=== PATIENT | male | born 1950 | race Caucasian/White ===

== ENCOUNTER 2019-08-04 23:30 | Emergency (ER) | payer OTHER, SELFPAY ==
--- NOTE | 2019-08-04 23:38 | ED_ITS ---
HPI - Abdominal Pain General Chief Complaint: Abdominal Pain Stated Complaint: stomach pain when eating Time Seen by Provider: 08/04/19 23:37 Source: patient Mode of arrival: Ambulatory Limitations: no limitations History of Present Illness HPI narrative: 68-year-old male nonsmoker with history of skin cancer presents with a chief complaint of a week or so of generalized abdominal pain which seems to be worse with eating. He complains of abdominal bloating, decreased appetite and some swelling in his neck. He has had no fever but admits to some chills. He has had nausea but no vomiting. He states that he was seen by his primary care provider and had some outpatient testing done but does not yet know the results. MD complaint: abdominal pain Onset (ago): day(s) Pain Consistency: constant Location: diffuse Severity: moderate Quality: cramping and aching Radiation: none Exacerbating factors: eating and movement Associated symptoms: nausea Related Data Previous Rx's Medication Instructions Recorded hydrocodone-acetaminophen 1 tab PO Q4-6H PRN #10 tab 08/05/19 ondansetron 4 mg PO TID-QID PRN #10 tab 08/05/19 Allergies Allergy/AdvReac Type Severity Reaction Status Date / Time No Known Drug Allergies Allergy Verified 08/05/19 00:04 Review of Systems Constitutional Constitutional: Denies chills, Denies fatigue, Denies fever(s), Denies frequent falls, Denies lethargy and Denies weakness Eyes Eyes: Denies change in vision, Denies eye discharge, Denies irritation and Denies loss of vision ENT Ears, Nose, Mouth, and Throat: Denies change in voice, Denies dizziness, Denies neck pain, Denies sore throat and Denies throat swelling Cardiovascular Cardiovascular: Denies chest pain, Denies irregular heart rhythm, Denies lightheadedness, Denies palpitations, Denies dyspnea, Denies dyspnea on exertion and Denies orthopnea Respiratory Respiratory: Denies cough, Denies dyspnea, Denies dyspnea on exertion and Denies wheezing Gastrointestinal Gastrointestinal: Reports abdominal pain, Denies change in bowel habits, Denies diarrhea, Reports nausea and Denies vomiting Genitourinary Genitourinary: Denies hematuria, Denies flank pain, Denies urinary incontinence and Denies urinary urgency Musculoskeletal Musculoskeletal: Denies back pain, Denies muscle weakness, Denies neck pain, Denies numbness and Denies tingling Integumentary/Breasts Skin/Breast: Denies pruritus, Denies erythema, Denies rash and Denies wounds Neurologic Neurologic: Denies behavioral changes, Denies confusion, Denies dizziness, Denies frequent falls, Denies loss of vision, Denies numbness, Denies tingling and Denies weakness Psychiatric Psychiatric: Denies anxiety, Denies behavioral changes, Denies confusion, Denies depression, Denies homicidal ideation and Denies suicidal ideation Endocrine Endocrine: Denies fatigue, Denies flushing and Denies palpitations Hematologic/Lymphatic Hematologic/Lymphatic: Denies easy bruising Allergic/Immunologic Allergic/Immunologic: Denies urticaria, Denies throat swelling and Denies whe ezing Patient History Social History Smoking Status: Never smoker Exam Narrative Exam Narrative: GENERAL: [68-year-old] year old patient appears stated age. Well-nourished, well-developed patient, in mild distress. HEAD: Atraumatic. Normocephalic. EYES: Pupils equal round and reactive. Extraocular motions intact. No scleral icterus. No injection or drainage. ENT: Nose without bleeding, purulent drainage. Throat without erythema, tonsillar hypertrophy or exudate. Airway patent. NECK: Trachea midline. Swollen tender cervical lymphadenopathy bilaterally CARDIOVASCULAR: Regular rate and rhythm without murmurs, gallops, or rubs. RESPIRATORY: Clear to auscultation. Breath sounds equal bilaterally. No wheezes, rales, or rhonchi. GASTROINTESTINAL: Abdomen soft, mild generalized tenderness and mild distension EXTREMITIES: No edema or joint tenderness. BACK: Nontender without deformity or crepitance. No flank tenderness. NEURO: AOx3. SKIN: No rash or erythema of visible areas Initial Vital Signs Initial Vital Signs: Vital Signs Temperature 97.9 F 08/04/19 23:40 Pulse Rate 101 H 08/04/19 23:40 Respiratory Rate 19 08/04/19 23:40 Blood Pressure 130/62 08/04/19 23:40 Pulse Oximetry 101 H 08/04/19 23:40 Course Orders Ordered: ED Orders 08/05/19 00:08 CT abdomen pelvis w con Stat 08/05/19 00:15 Complete Blood Count AUTO DIFF Stat Comprehensive Metabolic Panel Stat Lipase Stat 08/05/19 02:02 Urine Microscopic Stat Discontinued Medications Hydrocodone Bitart/Acetaminophen (Vicodin 5/325 Prepack) 1 bottle MISC SEEINSTR ONE Stop: 08/05/19 02:06 Last Admin: 08/05/19 02:10 Dose: 1 bottle Documented by: ANA MARIA Sodium Chloride (Normal Saline 0.9%) 1,000 mls @ 1,000 mls/hr IV BOLUS ONE Stop: 08/05/19 01:06 Last Infusion: 08/05/19 01:47 Dose: 0 mls/hr Documented by: Admin: 08/05/19 00:28 Dose: 1,000 mls/hr Documented by: LUCY Ondansetron HCl (Zofran) 4 mg IV NOW ONE Stop: 08/05/19 00:08 Last Admin: 08/05/19 02:10 Dose: Not Given Documented by: ANA MARIA Ondansetron HCl (Zofran Odt Prepack) 1 bottle MISC SEEINSTR ONE Stop: 08/05/19 02:06 Last Admin: 08/05/19 02:10 Dose: 1 bottle Documented by: ANA MARIA Pantoprazole Sodium (Protonix) 40 mg IV NOW ONE Stop: 08/05/19 00:08 Last Admin: 08/05/19 00:28 Dose: 40 mg Documented by: LUCY Vital Signs Vital signs: Vital Signs - 8 hr 08/04/19 23:40 08/05/19 02:09 Temperature 97.9 F Pulse Rate 101 H 89 Respiratory Rate 19 14 Blood Pressure 130/62 Blood Pressure [Left Arm] 127/63 Pulse Oximetry 101 H 94 MDM - Abdominal Pain Lab Data Result diagrams: 08/05/19 00:15 08/05/19 00:15 Labs: Lab Results 08/05/19 08/05/19 08/05/19 Range/Units 00:15 00:15 02:02 WBC 9.0 (4.5-11.0) X10^3/uL RBC 3.77 L (4.5-5.9) X10^6/uL Hgb 11.9 L (13.5-17.5) g/dL Hct 34.0 L (41-53) % MCV 90.1 (80-100) fL MCH 31.6 (26-34) PG MCHC 35.0 (30-36) % RDW 12.8 (11.6-14.8) % Plt Count 92 L (150-400) X10^3/uL Neut % (Auto) Not Reportable Lymph % (Auto) Not Reportable [place] % (Auto) Not Reportable Eos % (Auto) Not Reportable Baso % (Auto) Not Reportable Lymph # (Auto) Not Reportable [place] # (Auto) Not Reportable Baso # (Auto) Not Reportable Total Counted 100 Seg Neutrophils % 69.0 (38-70) % Band Neutrophils % 2.0 L (3-7) % Lymphocytes % (Manual) 11.0 L (25-45) % Atypical Lymphs % 5.0 H ( - 0) % Monocytes % (Manual) 12.0 H (2-11) % Eosinophils % (Manual) 1.0 L (2-4) % Neutrophils # (Manual) 6390 H (3743-5681) /uL Differential Comment Platelet Estimate Adequate on smear RBC Morphology Normal morphology Sodium 132 L (137-145) mmol/L Potassium 4.3 (3.4-5.1) mmol/L Chloride 96 L (98-107) mmol/L Carbon Dioxide 25 (22-32) mmol/L BUN 23 H (9-20) mg/dL Creatinine 1.00 (0.66-1.25) mg/dL Estimated GFR > 60.0 (>60) mL/min BUN/Creatinine Ratio 23.0 H (6-22) Glucose 105 (80-110) mg/dL Calcium 8.9 (8.4-10.2) mg/dL Total Bilirubin 1.8 H (0.2-1.3) mg/dL AST 43 (17-59) IU/L ALT 41 (<50) IU/L Alkaline Phosphatase 147 H (38-126) U/L Total Protein 9.5 H (6.3-8.2) g/dL Albumin 3.7 (3.5-5.0) g/dL Globulin 5.8 H (1.7-4.1) g/dL Albumin/Globulin Ratio 0.6 L (1.0-2.8) Lipase 342 H (23-300) U/L Urine RBC 0-1/hpf (0-5/HPF) Urine WBC None seen (0-5/HPF) Ur Squamous Epith Cells 0-1 /hpf (0-5/HPF) Calcium Oxalate Crystal Occasional H Urine Bacteria Few (2-10) H (None) Ur Culture Indicated? Cult not indicated Point of care testing: Urine Dip Bedside Urine Glucose Negative Bedside Urine Bilirubin - Negative Bedside Urine Ketone ++ 40 Urine Specific [place] 1.005 Bedside Urine Occult Blood +/- Bedside Urine pH 5.5 Bedside Urine Protein + 30 Bedside Urine Urobilinogen +/- 1mg Bedside Urine Nitrite - Negative Bedside Urine Leukocytes - Negative Esterase Imaging Data CT scan - abdomen/pelvis: Radiologist's Impression: Marked enlargement of the spleen with focal area of linear wedge-shaped area of hypoattenuation along superior margin of spleen, this may represent splenic infarct. I called Radiology to inform them of patient's history of traumatic spleen injury with prior surgery and they state that is the most likely cause of this presentation. Furthermore in addition to splenomegaly with enlarged axillary, mediastinal, retroperitoneal, mesenteric, pelvic and inguinal lymph nodes consistent with lymphoma MDM Narrative Medical decision making narrative: Multiple etiologies for patient's symptoms considered including: [Gallbladder disease with thought less likely given lack of findings on imaging and labs. Bowel obstruction considered but thought less likely given imaging. Lymphoma considered high and differential given widespread lymphadenopathy.] Patient's symptoms improved or duration of stay with above-stated therapies. Findings and discharge diagnosis discussed with patient/family followed by verbalization of understanding Return precautions discussed with patient/family whom verbalize understanding. Discharge Plan Departure Patient Disposition: Home Clinical Impression: Abdominal pain Qualifiers: Abdominal location: epigastric Qualified Code(s): R10.13 - Epigastric pain Discharge Date/Time: 08/05/19 02:41 Instructions: DI for Non-Hodgkin's Lymphoma, DI for Abdominal Pain-Adult Activity Restrictions/Additional Instructions: *You have been diagnosed with [abdominal pain, CT scan suggests the possibility lymphoma. It is very important that you close follow-up as you will need a prompt outpatient evaluation for further diagnosis] *What to do: *Take medications as directed *Follow up with your primary care provider in 2-3 days, call for an appointment. Let them know you were seen in the Emergency Department and that we ask that you be seen in follow up *Return to ER if you should have any new, worsening or concerning symptoms 1. Drink plenty of fluids with frequent small sips. 2. For the next 24 hours a clear liquid diet is advised. After that please employ a brat diet which would include bananas, rice, apples, toast. 3. Please take medications as directed. 4. Please follow-up with your doctor in the next 1-2 days. Call the office for an appointment. 5. Please return to the emergency Department for any worsening or persistent symptoms, such as increasing pain or fever. If you have trouble getting follow up in the next few days please email me and I will do what I can to help [email or web address] Prescriptions: New hydrocodone-acetaminophen 5-325 mg tablet 1 tab PO Q4-6H PRN (Reason: pain) Qty: 10 RF: 0 ondansetron 4 mg tablet,disintegrating 4 mg PO TID-QID PRN (Reason: nausea and vomiting) Qty: 10 RF: 0 Referrals: [facility] [Outside] Zhen Lind MD [Physician] -
[2019-08-04 23:40] VITALS: BP 130/62; PULSE 101; RESP 19; TEMP 36.6; O2SAT 101; BMI 26.4
--- NOTE | 2019-08-05 00:08 | DI.CT.S_ITS ---
PROCEDURE: CT ABDOMEN PELVIS W CON INDICATIONS: severe abdominal pain TECHNIQUE: After the administration of intravenous contrast, 5 mm thick sections acquired from the diaphragm to the symphysis. 5 mm coronal and sagittal reformats were acquired. For radiation dose reduction, the following was used: automated exposure control, adjustment of mA and/or kV according to patient size. COMPARISON: None. FINDINGS: Image quality: Excellent. ABDOMEN: Lung bases: Small bilateral pleural effusions and bibasilar atelectasis. There is a 7 mm nodule in the right lower lobe. Left basilar scars. Heart size is normal. There is mediastinal and bilateral hilar lymphadenopathy, partially visualized. Partial visualization of left axillary lymphadenopathy. Solid organs: Liver is normal in size and enhancement. Gallbladder may contains small gallstones.. Biliary system is non dilated. Pancreas enhances normally. Spleen is enlarged measuring 17 x 16 cm. A triangular-shaped hypodensity in the superior aspect of spleen may represent splenic infarct. No adrenal nodules. Kidneys demonstrate normal size and enhancement, without hydronephrosis. Peritoneum and bowel: Bowel loops demonstrate normal wall thickness and caliber. No free air. There is a small amount of free fluid. Nodes and vessels: There is retroperitoneal and mesenteric adenopathy. The largest lymph node is noted in the periportal area measuring 2.9 x 3.7 cm. There are multiple enlarged para-aortic and aortocaval lymph nodes measuring up to 1.5 cm. There are enlarged iliac lymph nodes bilaterally. Enlarged external iliac lymph nodes measure up to 2.7 x 3.7 cm on the right and 2.7 x 4.0 cm on the left. Aorta and inferior vena cava are normal in size. Miscellaneous: No ventral hernias. PELVIS: Genitourinary: Bladder wall thickness is normal. Miscellaneous: No inguinal hernias. Bilateral inguinal adenopathy. Bones: No suspicious bony lesions. No vertebral body compression fractures. Severe degenerative changes in lumbar spine. There is moderate compression fractures of T12 and L1. Lucencies in T12 and L1 suggest pathological fracture. IMPRESSION: 1. Splenomegaly. There is a triangular shaped hypodensity in the superior aspect of spleen, suggesting splenic infarct. 2. Retroperitoneal, mesenteric, iliac and inguinal lymphadenopathy concerning for lymphoma or metastasis. 3. Partial visualization of mediastinal and hilar lymphadenopathy, as well as left axillary lymphadenopathy. Recommend chest CT for further evaluation. 4. Small bilateral effusions and bibasilar atelectasis. 5. A 7 mm nodule in the right lower lobe. Recommend followup chest CT in 3 months. 6. Compression fractures of T12 and L1. There are lucencies in T12 and L1 suggesting pathological fracture. MRI with and without contrast of the thoracic and lumbar spine may be obtained for further evaluation. 3. A small amount of free fluid. Dictated by: Nicolle Tionco M.D. on 08/05/2019 at 8:01 Approved by: Nicolle Tinoco M.D. on 08/05/2019 at 9:49
[2019-08-05] MEDS: SODIUM CHLORIDE 0.9% 1,000 ML 1000 ML IV (00:28)
[2019-08-05] MEDS: PANTOPRAZOLE 40 MG VIAL IV (00:28)
[2019-08-05 00:34] LABS: Alanine Aminotransferase 41 IU/L (<50); Albumin 3.7 g/dL (3.5-5.0); Albumin Globulin Ratio 0.6 (1.0-2.8); Alkaline Phosphatase 147 U/L (38-126); Aspartate Aminotransferase 43 IU/L (17-59); Bilirubin Total 1.8 mg/dL (0.2-1.3); Blood Urea Nitrogen 23 mg/dL (9-20); Calcium 8.9 mg/dL (8.4-10.2); Carbon Dioxide 25 mmol/L (22-32); Chloride 96 mmol/L (98-107); Estimated Glomerular Filt Rate > 60.0 mL/min (>60); Globulin 5.8 g/dL (1.7-4.1); Glucose 105 mg/dL (80-110); HEMOLYSIS < 15 (0-50); Lipase 342 U/L (23-300); Potassium 4.3 mmol/L (3.4-5.1); Sodium 132 mmol/L (137-145); Total Protein 9.5 g/dL (6.3-8.2)
[2019-08-05 00:35] LABS: Hemoglobin 11.9 g/dL (13.5-17.5); Mean Corpuscular Hemoglobin 31.6 PG (26-34); Mean Corpuscular Volume 90.1 fL (80-100); Red Blood Cell Count 3.77 X10^6/uL (4.5-5.9); Red Cell Distribution Width 12.8 % (11.6-14.8)
[2019-08-05 00:40] LABS: Add Manual Diff / Slide Review YES
[2019-08-05 00:41] LABS: Platelet Count 92 X10^3/uL (150-400)
[2019-08-05 00:57] LABS: Neutrophils Absolute Manual 6390 /uL (3000-5900); Total Cells Counted 100
[2019-08-05 00:59] LABS: Platelet Estimate Adequate on smear; RBC Morphology Normal Morphology
[2019-08-05 02:04] LABS: WBC Urine None Seen (0-5/HPF)
[2019-08-05 02:09] VITALS: BP 127/63; PULSE 89; RESP 14; O2SAT 94
[2019-08-05] MEDS: HYDROCODONE/ACET 5/325 PREPACK 1 BOTTLE MISC (02:10)
[2019-08-05] MEDS: ONDANSETRON 4 MG ODT PREPACK 1 BOTTLE MISC (02:10)
[2019-08-05 02:12] LABS: Bacteria Urine Few (2-10); Calcium Oxalate Crystals Urine Occasional; Culture Indicated Urine Cult Not Indicated; RBC Urine 0-1/HPF (0-5/HPF); Squamous Epithelial Cell Urine 0-1 /HPF (0-5/HPF)
== END 2019-08-05 02:41 | disposition home or self-care (01) ==
PROVIDERS: Emergency Provider Emergency Medicine
DX: R10.13 Epigastric pain (principal)
CPT/HCPCS: 36415; 74177; 80053; 81003; 81015; 83690; 85025; 96361; 96374; 99284; 99285; C9113; Q9967

== ENCOUNTER → 2019-08-09 08:45 | Oncology outpatient (ONC) | payer MEDICARE, SELFPAY ==
--- NOTE | 2019-08-09 09:23 | ONC.CONS ---
History of Present Illness - Data of Consult Patient: new to practice Consult date: 08/09/19 Requesting Physician: Jens Degroot Primary Care Provider: None - Consult Narrative Reason for consult: Diffuse lymphadenopaty Narrative: Mike Bolton is a 68 year old male. He has medical problems notable for hypertension, hypercholesterolemia as well as coronary artery disease status post stent placement in 2016. Patient has been in his usual health until recently in early 2019. Patient used to be able to swim 5 to 6 times a week. But in late June 2019, patient noted significant fatigue so that he had to stop swimming. In addition, patient developed abdominal pain sometime during first part of July 2019. At the same time patient has noticed decreasing appetite. He went to walk-in clinic at [place] and was evaluated by Dr. Hernadez. According to patient a CT scan was obtained. However the report is not available to review today. The patient also developed on-and-off fever, but he did not measure the temperature himself. Patient reports breaking out sweats easily especially at night. He does have a couple of episodes of soaking night sweats. He presented to emergency room on 08/05/2019 because of worsening diffuse and constant abdominal pain. It was moderate in severity. Feels like cramping and aching. It gets worse with eating and movement. It is associated with nausea. Sameday CT CAP with contrast showed splenomegaly with a triangular shaped hypodensity in the superior aspect of spleen suggesting splenic infarct, retroperitoneal, mesenteric, iliac and inguinal lymphadenopathy concerning for lymphoma or metastasis, partial visualization of mediastinum and hilar with lymphadenopathy as well as left axillary lymphadenopathy, small bilateral pleural effusions and bibasilar atelectasis, 7 mm nodule in the right lower lobe, and compression fractures of T12 and L1, lucencies in T12 and L1. MRI with and without contrast of the thoracic and lumbar spine may be obtained. Patient was provided pain medication including hydrocodone/acetaminophen and medication ondansetron for nausea and vomiting. Since June 2019 patient has lost significant weight. For the last 1 week, he lost about 12 lb. Patient has a bad appetite. He said he had lumps all over his body. He reports headache from time to time. He reports exertional shortness of breath. He denies any chest pain. He is having diarrhea after eating. Patient reports pain?: Yes - Pain Details Pain location: abdomen, flank. Pain Intensity: 7 Pain Frequency: Constant Pain Description: Pressure, Sharp, Stabbing, With Movement Pain referral/management: Managed by PCP Home Medications and Allergies Home Medications Medication Instructions Recorded Confirmed Type ondansetron 4 mg PO TID-QID PRN #10 tab 08/05/19 08/09/19 Rx atorvastatin 40 mg PO DAILY 08/09/19 08/09/19 History hydrocodone-acetaminophen 1 tab PO Q6H PRN #120 tab 08/09/19 08/09/19 Rx ramipril 2.5 mg DAILY 08/09/19 08/09/19 History Allergies Allergy/AdvReac Type Severity Reaction Status Date / Time No Known Drug Allergies Allergy Verified 08/09/19 14:21 Medical History - Medical, Surgical, Family History Medical History: Medical History (Last Updated 08/09/19 @ 09:46 by Zhen Lind MD) Coronary artery disease Onset Date: ~07/2015 Hepatitis C Hypercholesteremia Hypertension Rupture, spleen Onset Date: ~1992 Surgical History: Surgical History (Last Updated 08/09/19 @ 09:47 by Zhen Lind MD) History of tonsillectomy S/P shoulder surgery Stented coronary artery Onset Date: ~08/06/15 Family History: Family History (Last Updated 08/09/19 @ 09:48 by Zhen Lind MD) Mother Lung cancer - Social History Smoking Status: Never smoker Substance Use Type: marijuana (smoked, stopped in Jun 2019) Alcohol Intake: never Review of Systems - Patient Self-Reported Symptoms SR Constitution: Fever, Chills (loss), Weight loss/gain, Fatigue/Malaise, Night Sweats SR respiratory issues: Shortness of breath SR Cardiovascular issues: Shortness of breath with activity or lying flat SR Gastrointestinal issues: Nausea, Diarrhea, Abdominal pain SR Musculoskeletal issues: Muscle weakness, Back or neck pain SR Neuro issues: Headache SR Hematologic issues: Swollen lymph nodes All systems PM: reviewed and no additional remarkable complaints except as stated Exam Vital signs: 08/09/19 10:14 Last Vital Signs Temp 98 F 08/09/19 09:36 Pulse 82 08/09/19 09:36 Resp 18 08/09/19 09:36 BP 91/52 L 08/09/19 09:36 Pulse Ox 97 08/09/19 09:36 ECOG 1 Narrative: Gen: WDWN, NAD, ill-appearing, and cooperative. Accompanied by his sister and nephew HEENT: NCAT, EOMI, PERRLA, anicteric sclera. Neck: Supple, No palpable thyromegaly. Bilateral scattered lymph nodes behind the cleidomastoid muscle noted, largest measuring around 0.5 x 1 cm. Mild tenderness associated with lymph nodes were noted. Respiratory: CTAB, no wheezes audible. No JVD Cardiovascular: RRR, S1 and S2 normal, no M/G/R. Abdomen: Soft, diffuse non-localized tenderness noted. No rebounds. The spleen is palpable around 8 cm below the left costal margin with tenderness. Liver is palpable around 3 cm below the right costal margin. Extremities: No LE pitting edema. Lymphatic: Neck lymph nodes see above. There are groups of enlarged and tender lymph nodes in the axilla especially on the left side. Largest probably measuring 3 cm in diameter. There are grouped lymph nodes in the groins bilaterally. All lymph nodes were associated with some mild tenderness. Neurological: AOx3, CN II-XII grossly intact. No focal motor or sensory deficit. Psychiatric: Normal affect. Cooperative. Results - Labs Laboratory Last Values WBC 13.4 X10^3/uL (4.5-11.0) H 08/09/19 10:30 RBC 2.92 X10^6/uL (4.5-5.9) L 08/09/19 10:30 Hgb 10.4 g/dL (13.5-17.5) L 08/09/19 10:30 Hct 28.8 % (41-53) L 08/09/19 10:30 MCV 98.7 fL (80-100) D 08/09/19 10:30 MCH 35.5 PG (26-34) H 08/09/19 10:30 MCHC 35.9 % (30-36) 08/09/19 10:30 RDW 13.4 % (11.6-14.8) 08/09/19 10:30 Plt Count 66 X10^3/uL (150-400) L 08/09/19 10:30 Neut % (Auto) Not Reportable 08/09/19 10:30 Lymph % (Auto) Not Reportable 08/09/19 10:30 [place] % (Auto) Not Reportable 08/09/19 10:30 Eos % (Auto) Not Reportable 08/09/19 10:30 Baso % (Auto) Not Reportable 08/09/19 10:30 Lymph # (Auto) Not Reportable 08/09/19 10:30 [place] # (Auto) Not Reportable 08/09/19 10:30 Baso # (Auto) Not Reportable 08/09/19 10:30 Total Counted 100 08/09/19 10:30 Seg Neutrophils % 62.0 % (38-70) 08/09/19 10:30 Band Neutrophils % 13.0 % (3-7) H 08/09/19 10:30 Lymphocytes % (Manual) 10.0 % (25-45) L 08/09/19 10:30 Atypical Lymphs % 6.0 % (-0) H 08/09/19 10:30 Monocytes % (Manual) 4.0 % (2-11) 08/09/19 10:30 Eosinophils % (Manual) 2.0 % (2-4) 08/09/19 10:30 Myelocytes % 1.0 % (-0) H 08/09/19 10:30 Blast Cells % 2.0 % (-0) H 08/09/19 10:30 Neutrophils # (Manual) 89733 /uL (8294-7423) H 08/09/19 10:30 RBC Morphology See below 08/09/19 10:30 Rouleaux 2+ H 08/09/19 10:30 Sodium 129 mmol/L (137-145) L 08/09/19 10:30 Potassium 5.0 mmol/L (3.4-5.1) 08/09/19 10:30 Chloride 95 mmol/L (98-107) L 08/09/19 10:30 Carbon Dioxide 21 mmol/L (22-32) L 08/09/19 10:30 BUN 32 mg/dL (9-20) H 08/09/19 10:30 Creatinine 1.40 mg/dL (0.66-1.25) H 08/09/19 10:30 Estimated GFR 50.1 mL/min (>60) L 08/09/19 10:30 BUN/Creatinine Ratio 22.9 (6-22) H 08/09/19 10:30 Glucose 112 mg/dL (80-110) H 08/09/19 10:30 Calcium 8.9 mg/dL (8.4-10.2) 08/09/19 10:30 Magnesium 2.7 mg/dL (1.6-2.3) H 08/09/19 10:49 Total Bilirubin 2.3 mg/dL (0.2-1.3) H 08/09/19 10:30 AST 62 IU/L (17-59) H 08/09/19 10:30 ALT 45 IU/L (<50) 08/09/19 10:30 Alkaline Phosphatase 194 U/L (38-126) H 08/09/19 10:30 Lactate Dehydrogenase 1055 U/L (313-618) H 08/09/19 10:30 Total Creatine Kinase 22 U/L (55-170) L 08/09/19 11:57 Total Protein 9.7 g/dL (6.3-8.2) H* 08/09/19 10:30 Albumin 3.5 g/dL (3.5-5.0) 08/09/19 10:30 Globulin 6.2 g/dL (1.7-4.1) H 08/09/19 10:30 Albumin/Globulin Ratio 0.6 (1.0-2.8) L 08/09/19 10:30 Assessment and Plan (1) Generalized lymphadenopathy Overview: 68-year-old gentleman with previous history of coronary artery disease and potential exposure to Agent [place] was found to have diffuse lymphadenopathy with abdominal pain, fatigue, night sweats and weight loss. Areas of lymphadenopathy include bilateral neck, bilateral axilla, and bilateral groins on physical examination. Available CT scans of the abdomen pelvis confirmed lymphadenopathy in visualized mediastinum, axillary, retropritoneam, and groins on 08/05/2019. Assessment: I talked with the patient, patient's sister and patient's nephew that the clinical presentation is highly suspicious for possible aggressive lymphoma. However without diagnosis, it is not definitive. I talked with them that there are a variety of different types of lymphoma, and treatment is different. I was suspicious for possible diffuse large B-cell lymphoma, Hodgkin's lymphoma or high grade follicular lymphoma. I talked with them that the first important step is to obtain a tissue diagnosis, preferably excisional biopsy of the superficial lymph nodes. I will refer the patient to our surgeon to evaluate. Given that he will need chemotherapy, I also recommended that at the time of the lymph node excision, patient has the port placed. Patient and patient's family voiced understanding. Today patient feels weak, with low blood pressure. Patient has not been eating and drinking well for the last 1-2 weeks. I will give patient 2 L of normal saline. Plan: 1. CBC, CMP, LDH, B2M, SPEP, IFIX 2. CT neck and chest with contrast 3. PET/CT 4. BMA/Bx 5. Surgical referral excisional biopsy of lymph node and port placement 6. NS 2 liters iv x 1 7. Hydrocodone 5/325, 1# q6h prn, 120 8. RTC in one week (2) Abdominal pain Overview: Diffuse abdominal pain, 7/10 in severity, constant, sharp, stabbing like, worse with movement. Assessment: On CT scan of the abdomen it showed diffuse lymphadenopathy that could be the etiology for the abdominal pain. I talked with them that for now we will continue the pain medications. Usually the pain will get better only after treatment with chemotherapy if indicated. Assessment: Hydrocodone 5/325, 1# q6h, prn pain.
[2019-08-09 09:36] VITALS: BP 91/52; PULSE 82; RESP 18; TEMP 36.6; O2SAT 97
[2019-08-09] MEDS: SODIUM CHLORIDE 0.9% 1,000 ML 1000 ML IV ×2 (10:37→11:35)
[2019-08-09 10:54] LABS: Hematocrit 28.8 % (41-53); Hemoglobin 10.4 g/dL (13.5-17.5); Mean Corpuscular HGB Conc 35.9 % (30-36); Mean Corpuscular Hemoglobin 35.5 PG (26-34); Mean Corpuscular Volume 98.7 fL (80-100); Platelet Count 66 X10^3/uL (150-400); Red Blood Cell Count 2.92 X10^6/uL (4.5-5.9); Red Cell Distribution Width 13.4 % (11.6-14.8); White Blood Cell Count 13.4 X10^3/uL (4.5-11.0)
[2019-08-09 11:06] LABS: Alanine Aminotransferase 45 IU/L (<50); Albumin 3.5 g/dL (3.5-5.0); Albumin Globulin Ratio 0.6 (1.0-2.8); Alkaline Phosphatase 194 U/L (38-126); Aspartate Aminotransferase 62 IU/L (17-59); BUN Creatinine Ratio 22.9 (6-22); Bilirubin Total 2.3 mg/dL (0.2-1.3); Blood Urea Nitrogen 32 mg/dL (9-20); Calcium 8.9 mg/dL (8.4-10.2); Carbon Dioxide 21 mmol/L (22-32); Chloride 95 mmol/L (98-107); Estimated Glomerular Filt Rate 50.1 mL/min (>60); Globulin 6.2 g/dL (1.7-4.1); Glucose 112 mg/dL (80-110); HEMOLYSIS < 15 (0-50); Lactate Dehydrogenase 1055 U/L (313-618); Sodium 129 mmol/L (137-145)
[2019-08-09 11:11] LABS: Add Manual Diff / Slide Review YES
[2019-08-09 11:20] LABS: Total Protein 9.7 g/dL (6.3-8.2)
[2019-08-09 11:32] LABS: Magnesium 2.7 mg/dL (1.6-2.3)
[2019-08-09 11:43] VITALS: BP 105/57; PULSE 81; RESP 15; O2SAT 97
[2019-08-09] MEDS: LOPERAMIDE 2 MG CAPSULE 4 MG PO (11:55)
[2019-08-09 12:01] LABS: Neutrophils Absolute Manual 10050 /uL (3000-5900); Total Cells Counted 100
[2019-08-09 12:05] LABS: Rouleaux 2+
[2019-08-09 12:12] LABS: Creatine Kinase 22 U/L (55-170)
--- NOTE | 2019-08-09 12:48 | ONC.SCHED ---
Per Renetta, patient is transferring to [facility] and no scheduling is required by us at this time.
[2019-08-09 12:56] VITALS: BP 103/58; PULSE 80
--- NOTE | 2019-08-09 14:01 | ONC.MSW ---
Description: New Pt F/F Visit Activity: Met with pt both before and after his initial consult visit appt. today. Pt was able to get an urgent appt. today based on the acuity of his new probable lymphoma findings during his ER visit last week. He and this COMPUTER AIDE/Navigator discussed that we don't take [employer] as a seconday, however we could at least get him established with Dr. Lind and begin staging, since his primary insurance is Medicare. COMPUTER AIDE had explained to pt that we could use the [facility] Medical Relief Fund to help cover the cost of the out of pocket. Met with again after his provider visit, discussed all of the things that Dr. Lind wanted scheduled, decided to transfer his care to [facility], where they can take his [facility] [employer], due to the fact that he also doesn't have Part D insurance. Discussed family's questions about advanced directives. Provided both the Healthcare DPOA and General DPOA forms for pt, explained to his sister how to complete them. Faxed pt's clinicals to [facility], spoke with Lizzette about the transfer. Called [facility], was able to get pt an appt for later this afternoon to meet with a surgeon, and to get him scheduled for Friday for the lymph biopsy and port placement. He is scheduled to see Dr. Lind at [facility] next Friday for next steps.
[2019-08-11 14:46] LABS: Beta-2-Microglobulin 14.44 mg/L (< 2.52)
[2019-08-13 15:10] LABS: Albumin 2.7 g/dL (3.8-4.8); Alpha 1 Globulin 0.4 g/dL (0.2-0.3); Alpha 2 Globulin 0.7 g/dL (0.5-0.9); Beta 1 Globulin 0.3 g/dL (0.4-0.6); Gamma Globulin 4.4 g/dL (0.8-1.7); Protein, Total 8.9 g/dL (6.1-8.1)
== END ==
PROVIDERS: Referring Provider Internal Medicine Hematology & Oncology; Visit Provider Internal Medicine Hematology & Oncology
DX: R59.1 Generalized enlarged lymph nodes (principal); R53.83 Other fatigue; R10.9 Unspecified abdominal pain; R63.4 Abnormal weight loss; R61 Generalized hyperhidrosis; I10 Essential (primary) hypertension; I25.10 Atherosclerotic heart disease of native coronary artery without angina pectoris; Z95.5 Presence of coronary angioplasty implant and graft
CPT/HCPCS: 36415; 80053; 82232; 82550; 82784; 83615; 83735; 84155; 84165; 85025; 86334; 96360; 99205; 99214; 99215

== ENCOUNTER 2019-08-11 13:03 | Day surgery (SDC) | payer MEDICARE, SELFPAY ==
[2019-08-10 08:11] VITALS: BMI 26.5
[2019-08-11] VITALS (10 sets, daily range): BP systolic 92–106; BP diastolic 54–72; PULSE 80–87; RESP 10–18; TEMP 36.5–37.2; O2SAT 92–98; BMI 26.5
--- NOTE | 2019-08-11 | DI.RAD.S_ITS ---
PROCEDURE: XR CHEST 1V INDICATIONS: s/p right chest wall portacath placement TECHNIQUE: One view of the chest was acquired. COMPARISON: [facility], CT, CT ABDOMEN PELVIS W CON, 08/05/2019, 0:14. FINDINGS: Surgical changes and devices: Right chest Port-A-Cath, the tip of which projects to the SVC right atrial junction.. Lungs and pleura: Question left apical lung mass versus mediastinal mass. No pleural effusions or pneumothorax. Mediastinum: Question superior mediastinal mass versus left apical lung mass. Heart size is normal. Bones and chest wall: No suspicious bony lesions. Overlying soft tissues appear unremarkable. IMPRESSION: Port-A-Cath in satisfactory position. Question left apical lung mass versus superior mediastinal mass. Dictated by: Rod Pyle M.D. on 08/11/2019 at 20:28 Approved by: Rod Pyle M.D. on 08/11/2019 at 20:30
--- NOTE | 2019-08-11 | PATH_ITS ---
[facility] Accession Number: [id number] . 01 Material submitted: . PART A: lymph node - LEFT AXILLARY NODE PART B: lymph node - LEFT AXILLARY NODE . 01 Clinical history: . A: B-PLUS FIX . 01 Diagnosis: Lymph node, left axillary, excision: --- Atypical T-lymphoid proliferation --- see comment BMQ 08/18/2019 1256 Local . 01 Comment: This case is being sent to Dr. Merced Rivera at the the [place] [facility] for expert consultation. . This case (findings, expected turn around time, need for outside consultation) has been discussed with Dr. Lind on multiple occasions on 08/16 and 08/18/2019. . 01 Electronically signed: . Isabel Hollis MD, Pathologist NPI- [id number] . 01 Gross description: . (A) Received in formalin, labeled L axillary node, is a piece of multani-yellow rubbery adipose tissue (4.5 x 2.5 x 1.3 cm). No obvious lymph node is identified. Serially sectioned and entirely submitted in cassettes A1-A8, one slice in each cassette. (B) Received in B Plus Fix, labeled B Plus Fix L axillary node, is an apparent lymph node in multiple pieces (1.9 x 1.3 x 0.8 cm in aggregate). Serially sectioned and entirely submitted in cassette B1. . Also submitted are two dry slides, two wet slides received apparently in alcohol, and, per the requisition, two vials of RPMI containing tissue. ([id number]) /MRV 08/13/2019 0956 Local . 01 Microscopic: . H/E sections demonstrate lymphoid tissue with architectural effacement. A PASH stain demonstrates vascular arborization. No residual follicular structures are identified by H/E;. Eosinophils and plasma cells are present and admixed. There is no evidence of Pepe-Nga/Hodgkin-type cells, no hallmark or wreath cells. There is no evidence of granulomata, necrosis or carcinoma. . In order to more fully characterize this process, immunohistochemical stains were indicated. The controls reacted appropriately. See below for Laboratory information. Findings: . Interpretation: CD3: Many positive, small, medium and isolated larger cells (membranous/strong) CD4: Many positive, small, medium and isolated larger cells; number appears greater than CD3 positive cells (membranous/strong) CD5: Many positive, small, medium and isolated larger cells; positivity approximates CD4 (membranous/moderate) CD8: Many positive, small, medium and isolated larger cells; fewer positive cells than CD4 positive (membranous/moderate) CD10: Scattered cells positive, none forming clusters, none forming perifollicular rings (membranous/strong) CD30: Many positive, small, medium and isolated larger cells; positivity approximates CD10 (membranous/moderate) BCL6: Scattered cells positive, forming some small clusters (nuclear/strong) PAX5: Scattered B-cells positive, some in residual follicular pattern (nuclear/strong) CD21: Expanded follicular dendritic cell meshworks present (cytoplasmic/strong) ALK1: Negative Ki- 67: Approximately 25% positive (nuclear/strong) RANGEL-nya: nuclear positivity seen, not forming follicular pattern Technical Note: The immunohistochemistry stains reported were performed at [facility] ([address], [facility] [address]). They were developed and their performance characteristics determined by [employer]. They have not been cleared or approved by the U.S. Food and Drug Administration, although such approval is not required for analyte-specific reagents of this type. . . 01 Pathologist provided ICD-10: C86.5 . 01 CPT . 767033, 603505, [id number], 913669, [id number], [id number] Performed at: 01 [facility] [address], [place], [place] [id number] MD Xiang Rasmussen MD Phone: [phone]
[2019-08-11 14:50] LABS: Add Manual Diff / Slide Review NO; Basophils Absolute Auto 100 /uL (0-100); Basophils Percent Auto 0.5 % (0-2); Eosinophils Absolute Auto 100 /uL (0-450); Eosinophils Percent Auto 0.7 % (2-4); Hematocrit 31.8 % (41-53); Hemoglobin 11.3 g/dL (13.5-17.5); Lymphocytes Absolute Auto 1000 /uL (1100-4500); Lymphocytes Percent Auto 8.3 % (25-40); Mean Corpuscular HGB Conc 35.3 % (30-36); Mean Corpuscular Hemoglobin 33.2 PG (26-34); Mean Corpuscular Volume 93.8 fL (80-100); Monocytes Absolute Auto 1500 /uL (0-900); Monocytes Percent Auto 12.7 % (3-14); Neutrophils Absolute Auto 9100 /uL (1500-7000); Neutrophils Percent Auto 77.8 % (50-75); Platelet Count 80 X10^3/uL (150-400); Red Blood Cell Count 3.39 X10^6/uL (4.5-5.9); Red Cell Distribution Width 13.4 % (11.6-14.8); White Blood Cell Count 11.6 X10^3/uL (4.5-11.0)
[2019-08-11 15:12] LABS: Neutrophils Absolute Manual 8700 /uL (3000-5900); Total Cells Counted 100
[2019-08-11 15:13] LABS: Rouleaux 1+
[2019-08-11] MEDS: CELECOXIB 200 MG CAPSULE 400 MG PO (15:39)
[2019-08-11] MEDS: GABAPENTIN 300 MG CAPSULE PO (15:40)
[2019-08-11] MEDS: ACETAMINOPHEN 325 MG TABLET 975 MG PO (15:40)
[2019-08-11] MEDS: LACTATED RINGERS 1,000 ML 42 ML IV ×2 (15:42→17:15)
--- NOTE | 2019-08-11 17:33 | PM.PREOP ---
Pre-operative Note Interval Note History & Physical reviewed/Exam performed by Physician: Yes Changes to H&P: No
[2019-08-11] MEDS: CEFAZOLIN 2 GM/100 ML FROZ.PIGGY IV (18:05)
--- NOTE | 2019-08-11 18:28 | SUR.OPER ---
Supine on padded OR bed, head on pillow, left arm secured on padded arm boards at <90 degrees abduction, right arm is tucked, legs uncrossed, safety belt at thigh, tape over blanket over lower legs.
[2019-08-11] MEDS: BUPIVACAINE 0.25% (PF) VIAL 30 ML INJ (18:39)
[2019-08-11] MEDS: HEPARIN 5,000 UNIT/ML VIAL 5000 UNIT SUBCUT (18:40)
[2019-08-11] MEDS: SODIUM CHLORIDE IRRIG SOLUTION 1,000 ML 50 ML IRR (18:44)
--- NOTE | 2019-08-11 19:24 | PM.OP.1 ---
Operative Date/Time/Diagnoses Date of procedure: 08/11/19 Time of procedure: 19:24 Pre-op diagnosis: Lymphoma Post-op diagnosis: same Procedure & Clinicians Procedure: Port-A-Cath placement Excision of left axillary lymph node Same procedure as scheduled: Yes Indications: Diffuse lymphadenopathy suspected lymphoma Surgeon: Fabio King Anesthesia Type: General Operative Notes Findings: Significant left axillary lymphadenopathy. Tip of catheter lies within the SVC Specimen(s): other (Left axillary nodes) Estimated Blood Loss (mL): 20 Procedure in detail: Patient was brought to the operating room placed supine on table. Bilateral lower extremity compressive devices were applied. General anesthesia was induced and he was intubated with an LMA. He was then prepped and draped in usual sterile fashion. Time-out was performed ensure the correct patient procedure necessary equipment within the operating room. He received 2 g of Ancef prior to incision. Under ultrasound guidance the right internal jugular vein was accessed under direct visualization. The guidewire was then threaded through the needle. Its placement was then confirmed using fluoroscopy. The dilator was then placed over the guidewire. The catheter was then inserted through the sheath. Placement was again confirmed with fluoroscopy. A subcutaneous pocket was made in the right chest wall. The tunneler device was used to move the catheter from the neck to the chest pocket. The port was attached after it was primed with heparined saline. The port was tested to ensure that it flushed easily and had good blood return. The port was then secured to the underlying fascia using interupted 0 Prolene suture. Hemostasis was achieved. The wound was irrigated with sterile saline. The subcutaneous tissues were reapproximated with the 3 0 Vicryl and then skin closed with 4-0 Monocryl. The skin was sealed with Dermabond. Next the left axilla was then prepped and draped in sterile fashion. The open area palpable lymphadenopathy within the left axilla. An incision was made through the skin overlying the area of greatest lymphadenopathy. The subcutaneous tissue was divided and mass of left axillary nodes was encountered. The nodes were carefully excised using electrocautery. The area was irrigated and checked for hemostasis. As a precaution Surgicel was then placed into the wound cavity given his thrombocytopenia. The subcutaneous tissues were reapproximated using Vicryl suture and the skin closed with a running Monocryl suture. Patient tolerated procedure well. The sponge and instrument count at the end operation was correct. Patient emerged from general anesthesia was extubated and taken to the postoperative care unit in stable condition Complications: none Post-operative Condition: stable Disposition: same day surgery
== END 2019-08-11 20:47 | disposition home or self-care (01) ==
PROVIDERS: Anesthesiology; PCP Internal Medicine Hematology & Oncology; Referring Provider Surgery; Visit Provider Surgery
PROC: (CPT 19301; principal; 2019-08-11 14:45)
DX: C86.5 Angioimmunoblastic T-cell lymphoma (principal); Z45.2 Encounter for adjustment and management of vascular access device
CPT/HCPCS: 38525; 36561; 36415; 71045; 85025; C1788; J0690; J1644; J2704; J3010